=== PATIENT | male | born 1975 | race Caucasian/White ===

== ENCOUNTER 2022-11-30 08:40 | Day surgery (SDC) | payer OTHER, SELFPAY ==
[2022-11-28 07:38] VITALS: BMI 47.5
[2022-11-30] MEDS: LACTATED RINGERS 1,000 ML 42 ML IV (09:01)
[2022-11-30 09:23] VITALS: BP 163/100; PULSE 56; RESP 16; TEMP 36.3; O2SAT 98; BMI 51.5
--- NOTE | 2022-11-30 11:50 | PM.PREOP ---
Pre-operative Note Interval Note History & Physical reviewed/Exam performed by Physician: Yes Changes to H&P: No
[2022-11-30] MEDS: CLINDAMYCIN 600 MG/50 ML PIGGYBACK 50 MG IV (12:50)
--- NOTE | 2022-11-30 13:01 | SUR.OPER ---
Supine on padded OR bed, head on pillow, arms secured on padded arm boards at <90 degrees abduction, legs uncrossed, safety belt at thigh, tape over blanket over lower legs.
[2022-11-30] MEDS: LIDOCAINE 2% INJ MDV 20ML 20 ML INJ (13:23)
[2022-11-30] MEDS: BUPIVACAINE 0.25% (PF) VIAL 5 ML SUBCUT (13:24)
[2022-11-30] MEDS: BACITRACIN OINT 0.9 GM PCKT 1 APPLIC TOP (13:25)
[2022-11-30 13:40] VITALS: BP 140/90; PULSE 65; RESP 15; TEMP 36.6; O2SAT 94
[2022-11-30 13:44] VITALS: BP 139/97; PULSE 63; RESP 24; O2SAT 93
[2022-11-30 13:49] VITALS: BP 141/90; PULSE 65; RESP 18; O2SAT 95
[2022-11-30 13:54] VITALS: BP 156/99; PULSE 61; RESP 16; O2SAT 95
--- NOTE | 2022-11-30 14:00 | P.OP_ITS ---
Operative Date/Time/Diagnoses Date of procedure: 11/30/22 Time of procedure: 13:00 Pre-op diagnosis: Left great toe chronic ingrowing nail Post-op diagnosis: same Procedure & Clinicians Procedure: Left hallux total chemical matrixectomy [id number] Same procedure as scheduled: Yes Indications: 47-year-old male with ongoing chronic ingrowing toenail to the left great toe. Conservative measures failed to alleviate the condition and he wished to have surgical intervention at this time. Spoke of the risks, potential complications, alternatives, and expected outcomes. Consent was signed, no contraindications to the procedure at this time. Surgeon: Kylah Duncan Click Yes if Unassisted: Yes Anesthesia Type: MAC +/- and Sedation Operative Notes Closure Type: not applicable Specimen(s): none sent Estimated Blood Loss (mL): 1 Blood products transfused: none Tourniquet time (min): 9 Procedure in detail: Patient was brought to the operating room and placed on the operative table in supine position. Following induction of mild IV sedation local anesthesia the recorded injectables were delivered to the patient's left great toe. The left foot was prepped and draped in the usual aseptic manner. After check of anesthesia a Hardtner drain was placed about the left hallux. The hallux nail was removed gently in total. It appeared that there was a 2nd nail that had grown underneath and the dorsal nail was about care home on and only about half of excursion of nail distally to proximally. No underlying purulent discharge was noted and the skin showed no underlying hyper granulation tissue. The surrounding skin was protected with triple antibiotic ointment and a series of 4 applications of phenol at 30 sec each were placed in the area where the matrix was located under the proximal nail fold. Following each the area was curetted and after the last it was rinsed with alcohol. The mynor tourniquet was removed, a prompt hyperemic response was seen to the toe. The area was cleaned and dressed with triple antibiotic ointment, Xeroform, 4x4s, and gently placed coban. Complications: none Post-operative Condition: stable Disposition: PACU Plan for aftercare: Following a period of postoperative monitoring, the patient will be discharged to home on written and oral postoperative instructions including keeping the dressing dry and intact, careful weight-bearing as tolerated to the foot although desire limited weight-bearing but may use without assistive device, elevating the foot when seated home. DVT prevention techniques have been reviewed. Instructions on soaking the foot and how to dress it are reviewed with he and his .
== END 2022-11-30 14:02 | disposition home or self-care (01) ==
PROVIDERS: Referring Provider Podiatrist; Visit Provider Podiatrist
PROC: 0HTRXZZ Resection of Toe Nail, External Approach (ICD-10-PCS; CPT 11750; principal; 2022-11-30 10:30)
DX: L60.0 Ingrowing nail (principal); L60.3 Nail dystrophy
CPT/HCPCS: 11750; J2250; J2704; J3490